=== PATIENT | male | born 1950 | race Caucasian/White ===

== ENCOUNTER 2018-04-23 11:06 | Day surgery (SDC) | payer MEDICARE ==
[~2018-04-23 11:06] MED LIST: Buffered Lidocaine 0.9% SYRIN* 5 ML/SYR SYRINGE INTRADERM ONE; Famotidine IV* 10 MG/ML 2 ML (20 mg) IV ONE
[2018-04-23] MEDS ORDERED: Buffered Lidocaine 0.9% SYRIN* 5 ML/SYR SYRINGE ONE (12:03)
[2018-04-23] MEDS ORDERED: Famotidine IV* 10 MG/ML 2 ML (20 mg) ONE (12:03)
[2018-04-23] MEDS ORDERED: Midazolam* 1 MG/ML 5 ML VIAL (5 MG) ONE (12:34)
[2018-04-23] MEDS ORDERED: Propofol* 10 MG/ML 20 ML BTL IV PUSH ONE (12:34)
[2018-04-23] MEDS ORDERED: fentaNYL* 50 MCG/ML 2 ML VIAL (100 MCG VIAL) ONE (12:34)
[2018-04-23] MEDS ORDERED: Lidocaine 2% PF * 5 ML VIAL ONE (12:34)
[2018-04-23] MEDS ORDERED: Naloxone* 0.4 MG/ML 1 ML VIAL IV PRN (12:46)
[2018-04-23] MEDS ORDERED: Ondansetron INJ* 2 MG/ML VIAL IV PRN (12:46)
[2018-04-23] MEDS ORDERED: HYDROcodone/ACETAMIN 5-325 MG* 1 TAB PO PRN ×2 (12:46)
[2018-04-23] MEDS ORDERED: fentaNYL* 50 MCG/ML 2 ML VIAL (100 MCG VIAL) IV PRN (12:46)
[2018-04-23] MEDS ORDERED: Lidocaine 2% EPI 1:200000 MPF*10-20 ML VIAL ONE (12:48)
[2018-04-23 13:46] VITALS: BP 159/84
--- NOTE | 2018-04-24 06:59 | OP ---
DATE OF OPERATION: 04/23/18 - [facility] DATE OF : 50 SURGEON: Viktor Clemente MD PRE-OP DIAGNOSES: Lymphadenopathy, right supraclavicular nodes. POST-OP DIAGNOSES: Lymphadenopathy, right supraclavicular nodes. OPERATIVE PROCEDURE: Excision and deep node biopsy, right neck. INDICATIONS: This 68-year-old gentleman with persistent lymphadenopathy. Fine - needle aspiration suspicious for lymphoma. Discussed open biopsy for additional specimen. DESCRIPTION OF PROCEDURE: The patient was taken to the operating room. General anesthetic was given with MAC anesthesia. Right neck was then prepped and draped in the usual fashion. Small incision was made above the lymph nodes. Blunt and sharp dissection was carried out . Once lymph node was identified, careful blunt and sharp dissection was carried out of the lymph node. Once the lymph node was removed, wound was copiously irrigated. Once hemostasis obtained, the wound was closed in two layers. The specimen was sent fresh for flow cytometry. [id number]/[facility] #: [id number] [facility]
== END 2018-04-23 14:10 | disposition home or self-care (01) ==
LOC: OR 11:06
PROVIDERS: ATTEND Otolaryngology
DX: C81.71 Other Hodgkin lymphoma, lymph nodes of head, face, and neck (principal); I10 Essential (primary) hypertension; J45.909 Unspecified asthma, uncomplicated; M06.9 Rheumatoid arthritis, unspecified; E78.5 Hyperlipidemia, unspecified; M10.9 Gout, unspecified; N30.10 Interstitial cystitis (chronic) without hematuria
CPT/HCPCS: 88305; 88333; 88341; 88342; 88365; J2250; J2704; J3010